=== PATIENT | male | born 1975 | race African-American/Black ===

== ENCOUNTER 2021-12-08 20:05 | Emergency (ER) | payer OTHER ==
[~2021-12-08] VITALS: Ht 193 cm; Wt 104.3 kg
[2021-12-08 20:10] VITALS: BP 125/71
--- NOTE | 2021-12-08 20:15 | NUR ---
BIBS FOR C/O WORSENING SOB X A MONTH RAN OUT OF INHALER TODAY. PATIENT ALERT AND ORIENTED X3. AMBULATORY, NOT IN DISTRESS. IN BED 07 ON MONITOR.
[2021-12-08] MEDS ORDERED: ALBU8.5H8 INH (20:27)
[2021-12-08] MEDS ORDERED: PRED50TA PO (20:27)
== END 2021-12-08 20:37 | disposition home or self-care (01) ==
LOC: ER 20:07
DX: J45.909 Unspecified asthma, uncomplicated (principal); Z88.8 Allergy status to other drugs, medicaments and biological substances; Z60.2 Problems related to living alone; Z87.891 Personal history of nicotine dependence; Z79.899 Other long term (current) drug therapy

== ENCOUNTER 2022-03-14 10:35 | Emergency (ER) | payer OTHER ==
[~2022-03-14] VITALS: Ht 193 cm; Wt 106.1 kg
[~2022-03-14 10:35] MED LIST: ALBU8.5H8 INH; PRED50TA PO
[2022-03-14 11:22] VITALS: BP 113/61
[2022-03-14] MEDS ORDERED: TDAP [DIPH/PERTUSSIS/TET] 0.5 ML VIAL IM ONE ×2 (11:44→12:00)
--- NOTE | 2022-03-14 11:50 | NUR ---
WOUND CLEANING AND DRESSING DONE.
--- NOTE | 2022-03-14 11:56 | NUR ---
Patient discharged to home in stable condition. Written and verbal after care instructions given. Patient verbalizes understanding of instruction.
== END 2022-03-14 11:57 | disposition home or self-care (01) ==
LOC: ER 10:40
DX: S61.212A Laceration without foreign body of right middle finger without damage to nail, initial encounter (principal); J45.909 Unspecified asthma, uncomplicated; Z88.8 Allergy status to other drugs, medicaments and biological substances; Z60.2 Problems related to living alone; Z79.899 Other long term (current) drug therapy; W26.0XXA Contact with knife, initial encounter; Y93.89 Activity, other specified; Y92.89 Other specified places as the place of occurrence of the external cause; Y99.8 Other external cause status
CPT/HCPCS: 90715

== ENCOUNTER 2023-03-22 19:29 | Emergency (ER) | payer OTHER ==
[~2023-03-22] VITALS: Ht 193 cm; Wt 108.0 kg
[2023-03-22] MEDS ORDERED: predniSONE 20 MG TABLET PO ONE (22:30)
[2023-03-22] MEDS ORDERED: CEPHALEXIN MONOHYDRATE 500 MG CAPSULE PO ONE ×2 (22:30→22:44)
[2023-03-22] MEDS ORDERED: diphenhydrAMINE HCL 25 MG CAPSULE PO ONE (22:30)
[2023-03-22] MEDS ORDERED: diphenhydrAMINE HCL 50 MG CAPSULE ONE (22:44)
[2023-03-22] MEDS ORDERED: predniSONE 20 MG TABLET ONE (22:44)
[2023-03-22] MEDS ORDERED: CEPH500T PO (23:02)
[2023-03-22] MEDS ORDERED: PRED50TA PO (23:02)
[2023-03-22 23:11] VITALS: BP 122/87
== END 2023-03-22 23:11 | disposition home or self-care (01) ==
LOC: ER 19:32
DX: S80.861A Insect bite (nonvenomous), right lower leg, initial encounter (principal); J45.909 Unspecified asthma, uncomplicated; Z88.8 Allergy status to other drugs, medicaments and biological substances; Z60.2 Problems related to living alone; W57.XXXA Bitten or stung by nonvenomous insect and other nonvenomous arthropods, initial encounter; Y93.89 Activity, other specified; Y92.89 Other specified places as the place of occurrence of the external cause; Y99.8 Other external cause status
CPT/HCPCS: 99284; 93971; Q0163; J7512

== ENCOUNTER 2024-01-04 10:17 | Emergency (ER) | payer OTHER ==
[~2024-01-04] VITALS: Ht 193 cm; Wt 105.2 kg
[~2024-01-04 10:17] MED LIST changes: +CEPH500T PO
[2024-01-04] MEDS ORDERED: IBUPROFEN 600 MG TABLET ONE (10:53)
[2024-01-04] MEDS ORDERED: CYCLOBENZAPRINE 10 MG TABLET ONE (10:53)
[2024-01-04] MEDS: CYCLOBENZAPRINE 10 MG TABLET PO ONE (10:55)
[2024-01-04] MEDS: IBUPROFEN 600 MG TABLET PO ONE (10:55)
[2024-01-04 12:27] VITALS: BP 118/79; TEMP 98.2; O2SAT 98
== END 2024-01-04 12:27 | disposition home or self-care (01) ==
LOC: ER 10:29
DX: S82.54XA Nondisplaced fracture of medial malleolus of right tibia, initial encounter for closed fracture (principal); J45.909 Unspecified asthma, uncomplicated; Z88.8 Allergy status to other drugs, medicaments and biological substances; Z60.2 Problems related to living alone; W01.0XXA Fall on same level from slipping, tripping and stumbling without subsequent striking against object, initial encounter; Y93.89 Activity, other specified; Y92.89 Other specified places as the place of occurrence of the external cause; Y99.8 Other external cause status
CPT/HCPCS: 73610-TC

== ENCOUNTER 2024-02-06 10:53 | Emergency (ER) | payer OTHER ==
[~2024-02-06] VITALS: Ht 193 cm; Wt 106.6 kg
[2024-02-06 11:00] VITALS: BP 122/70; TEMP 98.3; O2SAT 99
[2024-02-06] MEDS ORDERED: GENT5DRO4 EACHEYE (11:05)
== END 2024-02-06 11:08 | disposition home or self-care (01) ==
LOC: ER 10:56
DX: H10.9 Unspecified conjunctivitis (principal); J45.909 Unspecified asthma, uncomplicated; Z88.8 Allergy status to other drugs, medicaments and biological substances; Z60.2 Problems related to living alone; Z79.899 Other long term (current) drug therapy

== ENCOUNTER 2024-02-09 09:29 | Emergency (ER) | payer OTHER ==
[~2024-02-09] VITALS: Ht 182.9 cm; Wt 105.7 kg
[~2024-02-09 09:29] MED LIST changes: +GENT5DRO4 EACHEYE
[2024-02-09 09:51] VITALS: BP 115/94; TEMP 98.6; O2SAT 99
[2024-02-09] MEDS ORDERED: NAPR-1164 PO (11:35)
== END 2024-02-09 11:58 | disposition home or self-care (01) ==
LOC: ER 09:32
DX: M76.62 Achilles tendinitis, left leg (principal); J45.909 Unspecified asthma, uncomplicated; Z88.8 Allergy status to other drugs, medicaments and biological substances; Z60.2 Problems related to living alone
CPT/HCPCS: 73630-TC; 73650-TC

== ENCOUNTER 2024-02-25 10:22 | Emergency (ER) | payer OTHER ==
[~2024-02-25] VITALS: Ht 193 cm; Wt 105.7 kg
[~2024-02-25 10:22] MED LIST changes: +NAPR-1164 PO
[2024-02-25 11:15] VITALS: BP 115/66; TEMP 98.2; O2SAT 98
== END 2024-02-25 11:16 | disposition home or self-care (01) ==
LOC: ER 10:26
DX: M79.672 Pain in left foot (principal); J45.909 Unspecified asthma, uncomplicated; Z79.899 Other long term (current) drug therapy; Z60.2 Problems related to living alone; Z88.1 Allergy status to other antibiotic agents

== ENCOUNTER 2024-04-29 11:57 | Emergency (ER) | payer OTHER ==
[~2024-04-29] VITALS: Ht 193 cm; Wt 106.6 kg
[2024-04-29] MEDS ORDERED: CYCLOBENZAPRINE 10 MG TABLET ONE (12:41)
[2024-04-29] MEDS ORDERED: KETOROLAC TROMETHAMINE INJ 30 MG/ML VIAL ONE (12:41)
[2024-04-29] MEDS: CYCLOBENZAPRINE 10 MG TABLET PO ONE (12:59)
[2024-04-29] MEDS: KETOROLAC TROMETHAMINE INJ 60 MG/2 ML VIAL IM ONE (12:59)
[2024-04-29] MEDS ORDERED: CYCL5TAB PO (13:20)
[2024-04-29 13:33] VITALS: BP 124/66; TEMP 98.1; O2SAT 99
== END 2024-04-29 13:33 | disposition home or self-care (01) ==
LOC: ER 12:19
DX: M79.651 Pain in right thigh (principal); J45.909 Unspecified asthma, uncomplicated; Z88.8 Allergy status to other drugs, medicaments and biological substances; Z60.2 Problems related to living alone
CPT/HCPCS: 99283; 96372; J1885

== ENCOUNTER 2025-03-31 23:50 | Emergency (ER) | payer OTHER ==
[~2025-03-31] VITALS: Ht 188 cm; Wt 83.9 kg
[~2025-03-31 23:50] MED LIST changes: +CYCL5TAB PO
[2025-04-01] MEDS ORDERED: IBUPROFEN 400 MG TABLET ONE (02:02)
[2025-04-01] MEDS: IBUPROFEN 400 MG TABLET PO ONE (02:06)
[2025-04-01 04:24] VITALS: BP 134/80; TEMP 98.5; O2SAT 97
== END 2025-04-01 04:25 | disposition home or self-care (01) ==
LOC: ER 23:54
DX: M79.671 Pain in right foot (principal); J45.909 Unspecified asthma, uncomplicated; Z79.52 Long term (current) use of systemic steroids; Z87.891 Personal history of nicotine dependence; Z79.899 Other long term (current) drug therapy; Z60.2 Problems related to living alone
CPT/HCPCS: 73630-TC